=== PATIENT | female | born 1955 | race Caucasian/White ===

== ENCOUNTER 2018-08-17 17:33 | Emergency (ER) | payer BC ==
[2018-08-17 18:13] VITALS: BP 117/78
--- NOTE | 2018-08-17 18:51 | UC ---
Eye Complaint HPI - HPI Summary HPI Summary: Per sand temperer "STARTING LAST NIGHT LEFT EYE IRRITATION. WOKE UP TODAY W/ GOOPY DISCHARGE IN LEFT EYE. " -denies FB. started feeling gritty last night and goopiness this AM that she had to pry her eyelid open. no problems with vision. doesnt wear contacts - History of Current Complaint Chief Complaint: UCEye Stated Complaint: LEFT EYE ISSUE Time Seen by Provider: 08/17/18 18:18 Hx Last Menstrual Period: 10yrs Pain Intensity: 4 - Allergies/Home Medications Allergies/Adverse Reactions: Allergies Allergy/AdvReac Type Severity Reaction Status Date / Time environmental allergies Allergy Congestion Uncoded 08/17/18 18:05 Home Medications: Home Medications DULoxetine DR CAP* [Cymbalta CAP*] 1 tab DAILY 08/17/18 [History Confirmed 08/17] Levothyroxine TAB* [Synthroid 88 MCG TAB*] 1 tab DAILY 08/17/18 [History Confirmed 08/17/18] Pregabalin CAP(*) [Lyrica CAP(*)] 200 mg BID 08/17/18 [History Confirmed ] celeCOXIB CAP* [Celebrex CAP*] 1 tab BID 08/17/18 [History Confirmed 08/17/18] PMH/Surg Hx/FS Hx/Imm Hx Previously Healthy: Yes - Surgical History Surgical History: Yes Surgery Procedure, Year, and Place: sinus x2 tubal; right shoulder 2001 - Family History Known Family History: Positive: Hypertension - Social History Alcohol Use: None Substance Use Type: None Smoking Status (MU): Never Smoked Tobacco Review of Systems All Other Systems Reviewed And Are Negative: Yes Constitutional: Positive: Negative Skin: Positive: Negative Eyes: Positive: Drainage, Eye Redness ENT: Positive: Negative Respiratory: Positive: Negative Cardiovascular: Positive: Negative Gastrointestinal: Positive: Negative Genitourinary: Positive: Negative Motor: Positive: Negative Neurovascular: Positive: Negative Musculoskeletal: Positive: Negative Neurological: Positive: Negative Psychological: Positive: Negative Is Patient Immunocompromised?: No Physical Exam Triage Information Reviewed: Yes Appearance: Well-Appearing, No Pain Distress, Well-Nourished - very pleasant Vital Signs: Initial Vital Signs Temp 97.6 F 08/17/18 18:07 Pulse 88 08/17/18 18:07 Resp 16 08/17/18 18:07 BP 117/78 08/17/18 18:07 Pulse Ox 99 08/17/18 18:07 Vital Signs Reviewed: Yes Eyes: Positive: Conjunctiva Inflamed, Discharge - clear L>R. sclera injection b/ l, L>R ENT Exam: Normal ENT: Positive: Pharynx normal, TMs normal. Negative: Pharyngeal erythema Neck exam: Normal Neck: Positive: Supple, Nontender, No Lymphadenopathy Respiratory Exam: Normal Respiratory: Positive: Lungs clear, Normal breath sounds, No respiratory distress, No accessory muscle use Cardiovascular Exam: Normal Cardiovascular: Positive: RRR, No Murmur, Pulses Normal Abdominal Exam: Normal Abdomen Description: Positive: Nontender, Soft Musculoskeletal Exam: Normal Neurological Exam: Normal Psychological Exam: Normal Skin Exam: Normal Eye Complaint Course/Dx - Differential Dx/Diagnosis Differential Diagnosis/HQI/PQRI: Conjunctivitis, Corneal Abrasion, Foreign Body Provider Diagnosis: Conjunctivitis Discharge - Sign-Out/Discharge Documenting (check all that apply): Patient Departure All imaging exams completed and their final reports reviewed: No Studies - Discharge Plan Condition: Stable Disposition: HOME Prescriptions: Gentamicin 0.3% OPHTH.SOLN* 1 drop BOTH EYES Q4H #1 btl Patient Education Materials: Conjunctivitis (ED) Referrals: Marcelle Perez MD [Primary Care Provider] - Additional Instructions: We atlked about avoiding using eye make up until your symptoms resolve. Follow up with if your symptoms increae or persist. - Billing Disposition and Condition Condition: STABLE Disposition: Home
== END 2018-08-17 18:59 | disposition home or self-care (01) ==
LOC: UCCORT 17:33
DX: H10.9 Unspecified conjunctivitis (principal)
CPT/HCPCS: 99202; G0463

== ENCOUNTER 2018-09-29 18:29 | Emergency (ER) | payer BC ==
[2018-09-29 19:32] VITALS: BP 131/95
--- NOTE | 2018-09-29 19:59 | UC ---
Lower Extremity/Ankle HPI - HPI Summary HPI Summary: Fall today off of steps and hand R ankle sprain. 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 She does note swelling but denies bruising. - History of Current Complaint Chief Complaint: UCTrauma Stated Complaint: R ANKLE INJURY FROM FALL Time Seen by Provider: 09/29/18 19:56 Hx Obtained From: Patient Hx Last Menstrual Period: 10yrs ?: No Onset/Duration: Sudden Onset Pain Intensity: 5 Pain Scale Used: 0-10 Numeric - Allergies/Home Medications Allergies/Adverse Reactions: Allergies Allergy/AdvReac Type Severity Reaction Status Date / Time environmental allergies Allergy Congestion Uncoded 08/17/18 18:05 Home Medications: Home Medications Tramadol ER(NF) [Ultram HCl ER(NF)] 100 mg PO DAILY 09/29/18 [History Confirmed 09/29/18] traMADol TAB* [Ultram*] 50 mg PO Q6HR PRN 09/29/18 [History Confirmed 09/29/18] PMH/Surg Hx/FS Hx/Imm Hx - Additional Past Medical History Additional PMH: chronic back pain. Previously Healthy: Yes - Surgical History Surgical History: Yes Surgery Procedure, Year, and Place: sinus x2 tubal; right shoulder 2001 - Family History Known Family History: Positive: Hypertension - Social History Alcohol Use: None Substance Use Type: None Smoking Status (MU): Never Smoked Tobacco Review of Systems All Other Systems Reviewed And Are Negative: Yes Constitutional: Positive: Negative Skin: Positive: Negative Motor: Positive: Decreased ROM - r ankle.. Negative: Weakness Neurovascular: Negative: Decreased Sensation Musculoskeletal: Positive: Arthralgia - R ankle, Edema - R ankle.. Negative: Calf Tenderness, Myalgia Neurological: Negative: Weakness, Paresthesia, Numbness Physical Exam Triage Information Reviewed: Yes Appearance: Well-Appearing Vital Signs: Initial Vital Signs Temp 98.0 F 09/29/18 19:28 Pulse 69 09/29/18 19:28 Resp 16 09/29/18 19:28 BP 131/95 09/29/18 19:28 Pulse Ox 95 09/29/18 19:28 Vital Signs Reviewed: Yes Musculoskeletal: Positive: Strength Intact, ROM Limited @ - R ankle., Edema @ - R ankle, Other: - Neg [place] at R ankle Neurological: Positive: Muscle Tone Normal Skin: Positive: Other - No bruising at R ankle. Lower Extremity Course/Dx - Course Course Of Treatment: R ankle sprain after falling from steps. Neurovascularly intact and preliminary read no R ankle shows no obvious fracture but explained that pt. will get call if Radiologist reads a different reading tomorrow AM. Will use MAGAN and she takes tramadol for chronic back pain. - Differential Dx/Diagnosis Differential Diagnosis/HQI/PQRI: Arthritis, Sprain, Strain Provider Diagnosis: Ankle sprain Discharge - Sign-Out/Discharge Documenting (check all that apply): Patient Departure All imaging exams completed and their final reports reviewed: No - Discharge Plan Condition: Good Disposition: HOME Patient Education Materials: Ankle Sprain (DC) Forms: *Work Release Referrals: Marcelle Perez MD [Primary Care Provider] - Additional Instructions: You do not have an obvious fracture. It appears to be a bad ankle sprain. For now we will immobilize your ankle and treat your pain. If pain persists please follow up with your pcp. - Billing Disposition and Condition Condition: GOOD Disposition: Home - Attestation Statements Provider Attestation: I was available for consult. This patient was seen by the [facility]. The patient was not presented to, seen by, or examined by me. EK
--- NOTE | 2018-09-30 10:20 | UC ---
- Progress Note Progress Note: Radiologist reading of right ankle x-ray from September 29, 2018 is read as ankle soft tissue swelling no fracture. The provider from the same date read it as no fracture therefore there is no discrepancy. Course/Dx - Diagnoses Provider Diagnoses: Ankle sprain Discharge - Sign-Out/Discharge Documenting (check all that apply): Patient Departure All imaging exams completed and their final reports reviewed: Yes - Discharge Plan Condition: Good Disposition: HOME Patient Education Materials: Ankle Sprain (DC) Forms: *Work Release Referrals: Marcelle Perez MD [Primary Care Provider] - Additional Instructions: You do not have an obvious fracture. It appears to be a bad ankle sprain. For now we will immobilize your ankle and treat your pain. If pain persists please follow up with your pcp. - Billing Disposition and Condition Condition: GOOD Disposition: Home
== END 2018-09-29 20:29 | disposition home or self-care (01) ==
LOC: UCCORT 18:29
DX: S93.401A Sprain of unspecified ligament of right ankle, initial encounter (principal); W10.9XXA Fall (on) (from) unspecified stairs and steps, initial encounter; Y92.9 Unspecified place or not applicable
CPT/HCPCS: 99212; G0463